=== PATIENT | female | born 1990 | race Two or more races ===

== ENCOUNTER 2024-05-13 06:31 | Outpatient (REF) | payer OTHER, SELFPAY | END 2024-05-13 06:32 | disposition home or self-care (01) | LOC: HO.UMASIMG 06:31 | PROVIDERS: Visit Provider Family Medicine | DX: Z13.89 Encounter for screening for other disorder (principal) ==

== ENCOUNTER 2024-05-15 09:51 | Outpatient (REF) | payer OTHER, SELFPAY ==
--- NOTE | ~2024-05-15 | US_ITS ---
EXAMINATION: US PELVIS CLINICAL INFORMATION: Menorrhagia COMPARISON: None available. TECHNIQUE: Ultrasound of the pelvis is performed using both transabdominal and transvaginal transducers along with Doppler. Transvaginal imaging is performed due to inadequate visualization transabdominally. FINDINGS: Uterus: The uterus is retroverted flexion position and measures 7 x 4 x 4 cm. Volume is 58 cc. The double wall endometrial thickness is 3 mm. The uterus is smooth in contour and has normal myometrial echogenicity. No visible fibroid. Adnexa: Both ovaries are visualized. There is normal color flow to the adnexa. There is no ovarian torsion. There is no pelvic ascites or fluid collection. No gross solid or cystic lesion in the ovaries. Right ovary measures 4 x 2 x 3 cm. Volume is 15 cc. Left ovary measures 3 x 2 x 3 cm. Volume is 7 cc. US/US pelvic and transvaginal IMPRESSION: No uterine fibroids. No ovarian torsion. Normal endometrial stripe. Uterus is in retroversion flexion position which could be seen in endometriosis. Electronically signed by: Julio Cesar No MD 05/15/2024 02:02 PM [facility]
== END 2024-05-15 09:52 | disposition home or self-care (01) ==
LOC: HO.UMASIMG 09:51
PROVIDERS: Visit Provider Family Medicine
DX: N92.0 Excessive and frequent menstruation with regular cycle (principal)
CPT/HCPCS: 76830; 76856

== ENCOUNTER → 2024-05-15 13:11 | Outpatient (BNV) | payer OTHER, SELFPAY | PROVIDERS: Visit Provider Radiology Diagnostic Radiology | DX: N92.0 Excessive and frequent menstruation with regular cycle (principal) | CPT/HCPCS: 76830; 76856 ==